=== PATIENT | female | born 1995 | race Asian ===

== ENCOUNTER 2018-12-20 05:39 | Emergency (ER) | payer OTHER ==
[~2018-12-20] VITALS: Ht 157.5 cm; Wt 56.7 kg
--- NOTE | 2018-12-20 05:45 | NUR ---
PT BIBSELF COMPLAINING OF L KNEE ABRASION FOLLOWING SYNCOPAL EPISODE YESTERDAY. PT AXO4. RESPIRATIONS EVEN AND UNLABORED. 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 PENDING EVAL FROM ER .
--- NOTE | 2018-12-20 06:00 | NUR ---
LYRIC SEGOVIA AT BEDSIDE.
--- NOTE | 2018-12-20 06:09 | NUR ---
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
[2018-12-20 06:21] LABS: BASOPHILS # (AUTO) 0.1 /CMM (0.0-0.2); BASOPHILS % (AUTO) 1.1 % (0.0-2.0); EOSINOPHILS % (AUTO) 1.9 % (0.0-6.0); HEMATOCRIT 40 % (33-45); HEMOGLOBIN 13.4 g/dL (11.5-14.8); LYMPHOCYTES # (AUTO) 1.5 /CMM (0.8-4.8); MEAN CORPUSCULAR HGB CONC 33 g/dl (31.0-36.0); MEAN CORPUSCULAR VOLUME 92 fL (82-100); MONOCYTES # (AUTO) 0.5 /CMM (0.1-1.30); MONOCYTES % (AUTO) 5.9 % (2.0-12.0); NEUTROPHILS # (AUTO) 6.7 /CMM (1.8-8.9); NEUTROPHILS % (AUTO) 74.1 % (43.0-81.0); PLATELET COUNT (AUTO) 271 /CMM (150-450); RED BLOOD CELL COUNT(AUTO) 4.36 MIL/uL (4.0-5.2)
[2018-12-20 06:34] LABS: POTASSIUM 3.7 mmol/L (3.5-5.1)
[2018-12-20 06:39] LABS: CREATININE 0.8 mg/dL (0.6-1.3)
--- NOTE | 2018-12-20 06:55 | NUR ---
XRAY AT BEDSIDE.
[2018-12-20 07:14] VITALS: BP 105/62
--- NOTE | 2018-12-20 07:15 | NUR ---
Patient discharged to home in stable condition. Written and verbal after care instructions given. Patient verbalizes understanding of instruction.
[2018-12-20] MEDS ORDERED: HYDROCODONE/APAP 5/325MG 1 EACH TABLET PO ONE (07:30)
[2018-12-20] MEDS ORDERED: HYDROCODONE/APAP 5/325MG 1 EACH TABLET ONE (07:31)
== END 2018-12-20 07:15 | disposition home or self-care (01) ==
LOC: ER 05:43
DX: S80.212A Abrasion, left knee, initial encounter (principal); R55 Syncope and collapse; W18.39XA Other fall on same level, initial encounter; Y93.89 Activity, other specified; Y92.89 Other specified places as the place of occurrence of the external cause; Y99.8 Other external cause status
CPT/HCPCS: 36415; 71045-TC; 73564-TC; 80048-TC; 84484-TC; 84703-TC; 85025-TC